=== PATIENT | female | born 1945 | race Two or more races ===

== ENCOUNTER → 2025-02-27 | Emergency (ER) | payer OTHER ==
[~2025-02-27] VITALS: Ht 157.5 cm; Wt 45.4 kg
[2025-02-27 14:40] VITALS: BP 120/64; O2SAT 98
== END | disposition left against medical advice (07) ==
LOC: ER 13:42
DX: Z53.21 Procedure and treatment not carried out due to patient leaving prior to being seen by health care provider (principal)